=== PATIENT | male | born 1965 | race Asian ===

== ENCOUNTER 2018-03-08 07:49 | Emergency (ER) | payer OTHER ==
[~2018-03-08] VITALS: Ht 182.9 cm; Wt 86.2 kg
[2018-03-08 07:58] VITALS: TEMP 97.5
[2018-03-08 08:44] VITALS: BP 154/90
== END 2018-03-08 08:46 | disposition home or self-care (01) ==
LOC: ED 07:49
DX: J02.9 Acute pharyngitis, unspecified (principal); R59.9 Enlarged lymph nodes, unspecified
CPT/HCPCS: 96372; 99282; J0696

== ENCOUNTER 2020-01-14 14:22 | Emergency (ER) | payer OTHER ==
[~2020-01-14] VITALS: Ht 182.9 cm; Wt 90.7 kg
[2020-01-14 15:48] LABS: PLATELET COUNT 187 K/uL (142-355)
[2020-01-14 15:52] LABS: POTASSIUM 3.7 mmol/L (3.6-5.2)
[2020-01-14 17:07] VITALS: BP 154/87; TEMP 98.1
== END 2020-01-14 17:08 | disposition home or self-care (01) ==
LOC: ED 14:22
PROVIDERS: Family Medicine
PROC: 2W2DX4Z Dressing of Left Lower Arm using Bandage (ICD-10-PCS; principal; 2020-01-14)
DX: T20.00XA Burn of unspecified degree of head, face, and neck, unspecified site, initial encounter (principal); T22.212A Burn of second degree of left forearm, initial encounter; T31.0 Burns involving less than 10% of body surface; X12.XXXA Contact with other hot fluids, initial encounter; X16.XXXA Contact with hot heating appliances, radiators and pipes, initial encounter; Y92.89 Other specified places as the place of occurrence of the external cause
CPT/HCPCS: 36415; 80053; 81000; 85027; 96372; 99283; J1885